=== PATIENT | female | born 1975 | race Caucasian/White ===

== ENCOUNTER 2016-08-31 20:55 | Emergency (ER) | payer SELFPAY ==
[~2016-08-31] VITALS: Ht 154.9 cm; Wt 89.0 kg
[2016-09-01] MEDS ORDERED: TRAMADOL 50MG TABLET PO ONE (03:45)
[2016-09-01 03:53] VITALS: BP 146/75
== END 2016-09-01 03:54 | disposition home or self-care (01) ==
LOC: ER 20:57
DX: G89.29 Other chronic pain (principal); M54.9 Dorsalgia, unspecified
CPT/HCPCS: 81025; 99283